=== PATIENT | male | born 1980 | race Caucasian/White ===

== ENCOUNTER 2016-08-25 12:09 | Outpatient (CLI) | payer BC ==
[~2016-08-25] VITALS: Ht 193 cm; Wt 130.6 kg
[~2016-08-25 12:09] MED LIST: CYCL10TA9 PO; HYDR-3720 PO; HYDR-3816 PO; MELO10CA PO; PRD20T PO
[2016-08-25 12:24] VITALS: BP 163/94
[2016-08-25] MEDS ORDERED: BUPIVACAINE 0.25% 30 ML (SENSORCAINE) VIAL ONE (12:26)
[2016-08-25] MEDS ORDERED: TRIAMCINOLONE ACET (KENALOG-40) 40 MG/ML 1 ML VIAL ONE (12:26)
[2016-08-25 13:39] VITALS: BP 149/84
--- NOTE | 2016-08-25 14:10 | Pain Medicine-Procedure ---
Procedure Pre-Op/Post-Op Diagnosis Diagnosis: Disc disorder with radiculopathy, lumbar Indications for Operation Low back pain Attending Surgeon Nelson Procedure Date of Service: Aug 25, 2016 Procedure: Lumbar Epidural Steroid Injection at the L4-L5 level under Fluoroscopic Guidance Procedure: Patient was identified in the holding area. After risks, benefits, and alternatives were discussed with the patient, informed consent was obtained. Patient was brought to the fluoroscopy suite and placed prone on the procedure room table. A time out was performed. Vital signs were monitored throughout the procedure. The patients low back was prepped and draped in the usual sterile fashion. The patients skin was anesthetized using 2% Lidocaine. A Tuohy needle was inserted and advanced to the L3-L4 epidural space under fluoroscopic guidance using the loss of resistance technique and intermittent projection of fluoroscopy. There was no paresthesia with needle placement. The needle position was confirmed in both the AP and lateral view. Aspiration was positive for heme. Needle was withdrawn. The patients skin was anesthetized again using 2% Lidocaine. A Tuohy needle was inserted and advanced to the L4-L5 epidural space under fluoroscopic guidance using the loss of resistance technique and intermittent projection of fluoroscopy. There was no paresthesia with needle placement. The needle position was confirmed in both the AP and lateral view. After negative aspiration 2ml of contrast was injected under live fluoroscopy which showed good spread of the contrast in the epidural space at the appropriate level, there was no intravascular or subarachnoid spread. Again, after negative aspiration for heme or CSF, 2 ml of 0.25% Bupivicaine, 2ml of preservative free normal saline, and 80mg of Kenalog was injected. The needle was removed and a sterile bandage was placed and the patient was transferred to the recovery area in stable condition. After a brief period of observation, patient was discharged to home with no new neurological deficits and no apparent complications. Complications None GABRIELLA BATISTA MD Aug 25, 2016 2:10 pm
== END 2016-08-25 13:40 | disposition home or self-care (01) ==
LOC: CARD 12:09
PROVIDERS: ATTEND Pain Medicine Pain Medicine
DX: M51.16 Intervertebral disc disorders with radiculopathy, lumbar region (principal)
CPT/HCPCS: 62323

== ENCOUNTER → 2020-07-09 | Outpatient (CLI) | payer BC ==
[~2020-07-09] MED LIST changes: +HYDR-34 PO; -HYDR-3816 PO
== END ==
LOC: LABNPT 10:33
PROVIDERS: ATTEND Family Medicine
DX: Z20.822 Contact with and (suspected) exposure to COVID-19 (principal)
CPT/HCPCS: 87635

== ENCOUNTER → 2022-08-18 | Outpatient (CLI) | payer OTHER ==
[~2022-08-18] MED LIST changes: +CYCL10TA25 PO; -CYCL10TA9 PO
--- NOTE | 2022-08-18 12:22 | Diagnostic Imaging Report ---
US RENAL ART DOPPLER VERONIQUE COMP TECHNIQUE: Grayscale, color Doppler and spectral Doppler imaging of the kidneys and renal arteries. INDICATION: Uncontrolled hypertension COMPARISON: None available FINDINGS: Right side: Right kidney is normal in size measuring 12 cm. There is no mass or hydronephrosis. Color Doppler imaging shows patency of the main renal artery with low resistant waveforms. There are no elevated peak systolic velocities within the main renal artery. Maximal peak systolic velocity is 55 cm/s. Renal artery to aortic ratio of 0.35. Left side: Left kidney is normal in size measuring 12 cm in length. There is no hydronephrosis or mass. Color Doppler imaging shows patency of the main renal artery. There are normal low resistant waveforms. No elevated peak systolic velocities. Maximal peak velocity is 54 cm/s with a renal artery aortic ratio of 0.34. IMPRESSION: 1. No features of renal artery stenosis. Dictated by: Dictated on workstation # [id number]
== END ==
LOC: RAD 08:21
PROVIDERS: ATTEND Family Medicine
DX: I10 Essential (primary) hypertension (principal)
CPT/HCPCS: 76770; 93975